=== PATIENT | female | born 1960 | race American Indian/Alaskan Native ===

== ENCOUNTER 2016-11-19 18:30 | Emergency (ER) | payer BC ==
--- NOTE | 2016-11-19 22:19 | XRay Report ---
FINAL REPORT EXAM: XR ANKLE 3 RT HISTORY: swelling, pain COMPARISON: None available. FINDINGS: Three views of right ankle obtained. Ankle mortise is preserved. No acute fracture dislocation. Tiny plantar calcaneal spur. IMPRESSION: No acute bony abnormality.
--- NOTE | 2016-11-19 22:24 | Emergency Department Report ---
ED Lower Extremity HPI - General Chief Complaint: Extremity Injury, Lower Stated Complaint: SEVERE PAIN R FOOT Time Seen by Provider: 11/19/16 22:08 Source: patient Mode of arrival: Wheelchair Limitations: No Limitations - History of Present Illness Initial Comments: This is a 56-year-old female that presents today with right foot/ankle pain. Patient denies any known injury. Patient stated that she was walking in heels all day today. Patient started to notice pain when she went to her car. Is unaware if she twisted her ankle or or injured her ankle/foot. Patient states pain is 10 out of 10. Worse when walking/pressure. Patient denies anything makes the pain better. Patient denies taking any [id number] medication or pain. Patient describes pain as throbbing and aching. Denies any numbness or tingling sensation. No known drug allergies. Patient is a note 3. Nontoxic appearance or distress noted. MD Complaint: ankle injury (right) Onset/Timin (PM) -: Sudden (patient thinks it was sudden. But unaware.) Injury: Ankle: Right (edema noted. No erythema noted. ) Place: other [facility]) Severity: severe Severity scale (0 -10): 10 Improves With: nothing Worsens With: other (walking, pressure) Context: other (patient is unaware of any fall or trauma.) Associated Symptoms: swelling, able to partially bear weight. denies: snap/pop sensation, numbness, tingling, unable to bear weight, ambulatory - Related Data Previous Rx's Medication Instructions Recorded Last Taken Type Naproxen [Naprosyn TAB] 500 mg PO PRN PRN #14 tablet 11/19/16 Unknown Rx Allergies Allergy/AdvReac Type Severity Reaction Status Date / Time No Known Allergies Allergy Verified 11/19/16 18:49 ED Review of Systems ROS: Stated complaint: SEVERE PAIN R FOOT Other details as noted in HPI Comment: All other systems reviewed and negative Constitutional: denies: chills, fever Eyes: denies: eye pain, eye discharge, vision change ENT: denies: ear pain, throat pain Respiratory: denies: cough, shortness of breath, wheezing Cardiovascular: denies: chest pain, palpitations Endocrine: no symptoms reported Gastrointestinal: denies: abdominal pain, nausea, diarrhea Genitourinary: denies: urgency, dysuria, discharge Musculoskeletal: denies: back pain, joint swelling, arthralgia Skin: denies: rash, lesions Neurological: denies: headache, weakness, paresthesias Psychiatric: denies: anxiety, depression Hematological/Lymphatic: denies: easy bleeding, easy bruising ED Past Medical Hx - Past Medical History Previous Medical History?: No - Surgical History Past Surgical History?: No - Social History Smoking Status: Current Some Day Smoker Substance Use Type: None - Medications Home Medications: Home Medications Medication Instructions Recorded Confirmed Last Taken Type Naproxen [Naprosyn TAB] 500 mg PO PRN PRN #14 tablet 11/19/16 Unknown Rx ED Physical Exam - General Limitations: No Limitations General appearance: alert, in no apparent distress - Head Head exam: Present: atraumatic, normocephalic - Eye Eye exam: Present: normal appearance - ENT ENT exam: Present: mucous membranes moist - Neck Neck exam: Present: normal inspection - Respiratory Respiratory exam: Present: normal lung sounds bilaterally. Absent: respiratory distress - Cardiovascular Cardiovascular Exam: Present: regular rate, normal rhythm. Absent: systolic murmur, diastolic murmur, rubs, gallop - GI/Abdominal GI/Abdominal exam: Present: soft, normal bowel sounds - Extremities Exam Extremities exam: Present: normal inspection - Expanded Lower Extremity Exam Right Hip exam: Present: normal inspection, full ROM. Absent: tenderness, swelling Upper Leg exam: Present: normal inspection, full ROM. Absent: tenderness, swelling, abrasion, laceration Knee exam: Present: normal inspection, full ROM. Absent: tenderness, swelling, abrasion, laceration, deformity, erythema Lower Leg exam: Present: normal inspection, full ROM. Absent: tenderness, swelling, abrasion, laceration, deformity Ankle exam: Present: tenderness (lateral), swelling (lateral). Absent: abrasion , laceration, deformity, anterior draw sign Foot/Toe exam: Present: tenderness (lateral foot), swelling (lateral). Absent: abrasion, laceration, erythema, puncture wound, foreign body, tenderness at base of 5th metatarsal Neuro vascular tendon exam: Present: no vascular compromise. Absent: pulse deficit, abnormal cap refill, sensory deficit, tendon deficit, extremity cold to touch, pallor, abnormal 2-point discrimination, decreased fine/light touch, foot drop, peroneal nerve deficit Gait: Positive: observed and normal (with limited due to severe pain) ED Course Vital Signs 04/09/17 18:44 Temperature 98.5 F Pulse Rate 67 Respiratory 16 Rate Blood Pressure 141/86 O2 Sat by Pulse 100 Oximetry ED Lower Extremity MDM - Medical Decision Making Ed course: 56-year-old female presents with lateral ankle and foot pain. 1- I prescribed naproxen for pain. 2- x-ray results of foot Dictated by Mikki: There are no fractures or malalignemnts. 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 X-ray results of ankle dictated by Dr. Clarke: Ankle mortise is preserved. no acute fracture dislocation. Tiny plantar calcaneal spur. 3- Ice applied to affected area. 4- I instructed patient to RICE 5- Osman bandage applied to the right ankle and foot.. Patient tolerated well. Denies any numbness or tingling sensation. Normal capillary refill. 6- I instruct the patient to see orthopedic doctor in 3-5 days. 7- prescribed naproxen when necessary at discharge 8- patient aware of diagnosis and follow-up. No questions at this time. 9- patient does not appear toxic or in any distress at the time of discharge. Critical care attestation.: If time is entered above; I have spent that time in minutes in the direct care of this critically ill patient, excluding procedure time. ED Disposition Clinical Impression: Ankle bone spur, Arthrosis of foot Disposition: DISCHARGED TO HOME OR SELFCARE Is pt being admited?: No Does the pt Need Aspirin: No Condition: Stable Instructions: Ankle Exercises (GEN), RICE Therapy (ED), Naproxen (By mouth), Osteoarthritis (ED) Additional Instructions: Please follow up with her primary care doctor and orthopedic in 3-5 days. Please rest, ice, elevate, compress foot. Please report back to emergency room if he feel any numbness, tingling, swelling , redness of the foot. Prescriptions: Naproxen [Naprosyn TAB] 500 mg PO PRN PRN #14 tablet PRN Reason: Pain Referrals: [facility] [Other] - 3-5 Days [facility] [place]] - 3-5 Days [facility] [Outside] - 3-5 Days LILIAM HOLM MD [Staff Physician] - 3-5 Days
--- NOTE | 2016-11-19 22:25 | XRay Report ---
FINAL REPORT PROCEDURE: XR FOOT 3 RT TECHNIQUE: Right foot radiographs, AP, lateral, and oblique views. CPT 07147 HISTORY: swelling, pain COMPARISON: No prior studies are available for comparison. FINDINGS: Fracture (s) and/or Dislocation(s): There is moderate arthrosis of the 1st metatarsal phalangeal joint.. Alignment: Normal . Joint space(s): Normal . Soft tissues: There is soft tissue swelling at the 1st metatarsophalangeal joint.. Bone mineralization: Normal . Foreign bodies: None . Calcaneal spurring: None . IMPRESSION: There are no fractures or malalignments. 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
[2016-11-19] MEDS ORDERED: NAPROSYN PO ONE (22:32)
[2016-11-19] MEDS ORDERED: ULTRAM PO ONE (23:00)
[2016-11-19 23:23] VITALS: BP 132/71
== END 2016-11-19 23:32 | disposition home or self-care (01) ==
LOC: ED 18:30
DX: M19.071 Primary osteoarthritis, right ankle and foot (principal); M77.51 Other enthesopathy of right foot and ankle; F17.200 Nicotine dependence, unspecified, uncomplicated
CPT/HCPCS: 99284